=== PATIENT | female | born 1985 | race Hispanic/Latino ===

== ENCOUNTER 2016-10-09 13:16 | Emergency (ER) | payer OTHER ==
[~2016-10-09] VITALS: Ht 152.4 cm; Wt 81.6 kg
[~2016-10-09 13:16] MED LIST: ULTRAM50 M1 PO
--- NOTE | 2016-10-09 13:30 | ED GENERAL ADULT ---
History of Present Illness General Chief Complaint: Abdominal Pain/Flank Pain Stated Complaint: PT IS DIZZY,CAN'T KEEP ANYTHING DOWN, Source: patient Exam Limitations: no limitations Vital Signs & Intake/Output Vital Signs & Intake/Output ED Intake and Output 10/10 0000 10/09 1200 Intake Total 1000 Output Total Balance 1000 Intake, IV 1000 Patient 180 lb Weight Weight Estimated Measurement Method Allergies Coded Allergies: No Known Allergies (09/17/15) Reconcile Medications Penicillin V Potassium 500 MG TABLET 1 TAB PO BID STREP THROAT Triage Note: PT TO ED C/O ABD PAIN AND VOMITING SINCE YESTERDAY. DENIES DIARRHEA. Triage Nurses Notes Reviewed? yes Onset: Abrupt Duration: hour(s): Timing: recent history : No Patient currently breastfeeds: No HPI: 10/09/16 31-year-old female presents to the emergency department with lower abdominal pain, sore throat, and nausea. The patient states she was in her usual state of health until approximately 24 hours ago when she developed above symptoms. She denies fever. No recent travel. The onset of the symptoms was abrupt, the duration has been the last 12 hours, severity is significant; as her symptoms required her to come to the emergency department for care. She has no significant past medical history. Last menstrual period is presently. She denies any medications. she denies any drug allergies. There was no rash or tick bite. She denies any past surgical history Past History Travel History Traveled to [place] past 21 day No Medical History Any Pertinent Medical History? see below for history Surgical History Surgical History: non-contributory Psychosocial History What is your primary language Slovenian Tobacco Use: Never used ETOH Use: denies use Illicit Drug Use: denies illicit drug use Family History Hx Contributory? No Review of Systems Review of Systems Constitutional: Reports: fever, malaise. EENTM: Denies: visual changes. Respiratory: Reports: cough. Denies: short of breath. Cardiovascular: Denies: chest pain. GI: Reports: abdominal pain, vomiting. Genitourinary: Reports: no symptoms. Musculoskeletal: Reports: no symptoms. Skin: Denies: rash. Neurological/Psychological: Reports: no symptoms. Hematologic/Endocrine: Reports: no symptoms. Immunologic/Allergic: Reports: no symptoms. Physical Exam Physical Exam General Appearance: well developed/nourished, alert, awake, anxious, mild distress Head: atraumatic, normal appearance Eyes: Bilateral: normal appearance, PERRL, EOMI. Ears, Nose, Throat: normal ENT inspection, pharyngeal erythema with exudates Neck: normal inspection, supple Respiratory: normal breath sounds, chest non-tender, no respiratory distress Cardiovascular: regular rate/rhythm Peripheral Pulses: 4+ radial (R), 4+ radial (L) Gastrointestinal: soft, non-tender Back: normal range of motion Extremities: normal inspection, normal range of motion, no edema Neurologic/Psych: no motor/sensory deficits, awake, alert, oriented x 3 Skin: intact, normal color, warm/dry Core Measures ACS in differential dx? No CVA/TIA Diagnosis: No Severe Sepsis Present: No Septic Shock Present: No Progress Differential Diagnoses I considered the following diagnoses in my evaluation of the patient: [Strep pharyngitis, mono, cervicitis, PID, appendicitis, viral syndrome, gastroenteritis, pyelonephritis] Plan of Care: Orders Procedure Date/time Status THROAT CULTURE W/QUICK STREP 10/09 1357 Complete MONOSPOT 10/09 1357 Complete URINE 10/09 1356 Complete URINALYSIS 10/09 1356 Complete LIPASE 10/09 1356 Complete COMPREHENSIVE METABOLIC PANEL 10/09 1356 Complete CBC WITHOUT DIFFERENTIAL 10/09 1356 Complete AMYLASE 10/09 1356 Complete Laboratory Tests 10/09/16 1545: Urine Color YEL, Urine Clarity HAZY H, Urine pH 7.0, Ur Specific [place] <= 1.005, Urine Protein NEG, Urine Ketones NEG, Urine Nitrite NEG, Urine Bilirubin NEG, Urine Urobilinogen 0.2, Ur Leukocyte Esterase NEG, Ur Microscopic SEDIMENT EXAMINED, Urine RBC 1-3, Ur Epithelial Cells FEW, Urine Hemoglobin SMALL H, Urine Glucose NEG, Urine Test NEGATIVE 10/09/16 1400: Anion Gap 9, Estimated GFR > 60, BUN/Creatinine Ratio 15.7, Glucose 100 H, Calcium 8.5, Total Bilirubin 0.9, AST 22, ALT 32, Alkaline Phosphatase 78, Total Protein 6.8, Albumin 3.6, Globulin 3.2, Albumin/Globulin Ratio 1.1, Amylase 36, Lipase 50, CBC w Diff MAN DIFF ORDERED, RBC 3.76 L, MCV 89.7, MCH 31.0, RDW 12.7, MPV 7.9, Gran % 90.6 H, Lymphocytes % 4.8 L, Monocytes % 4.5, Eosinophils % 0, Basophils % 0.1, Absolute Granulocytes 8.9 H, Absolute Lymphocytes 0.5 L, Absolute Monocytes 0.4, Absolute Eosinophils 0, Absolute Basophils 0, Platelet Estimate ADEQUATE, Anisocytosis 1+, PUBS MCHC 34.6, Infectious [place] Titer NEGATIVE Initial ED EKG: none Departure Departure Disposition: HOME OR SELF CARE Condition: Stable Clinical Impression Primary Impression: Strep pharyngitis Secondary Impressions: Pelvic pain Referrals: UNKNOWN (PCP/Family) Departure Forms: Customer Survey General Discharge Information Prescriptions: Current Visit Scripts Penicillin V Potassium 1 TAB PO BID #20 TAB Comments The patient's labs are essentially unremarkable. Abdominal cramps are much improved. She's actually having her menstrual period now. test is negative. UA is unremarkable. She does not have significant leukocytosis. Quick strep was positive and she does have exudative pharyngitis. I'll treat with penicillin. She will follow-up with her doctor this week or return to the emergency department if worse 10/10/16 The patient was called for follow-up. She stated she was much improved. She was told that should she have any abdominal pain, to return to the emergency department. She denied any further vomiting, stated her pain was epigastric and free much gone, and will return for reevaluation should she have any pain. Critical Care Note Critical Care Note Critical Care Time: non-applicable
[2016-10-09 14:14] LABS: ABSOLUTE BASOPHIL COUNT 0 /CUMM (0.0-0.2); ABSOLUTE EOSINOPHIL COUNT 0 /CUMM (0.0-0.7); ABSOLUTE GRANULOCYTE CT 8.9 /CUMM (1.4-6.5); ABSOLUTE LYMPH COUNT 0.5 /CUMM (1.2-3.4); ABSOLUTE MONOCYTE COUNT 0.4 /CUMM (0.10-0.60); BASOPHIL % 0.1 % (0.0-2.0); EOSINOPHIL % 0 % (0-5); GRANULOCYTE % 90.6 % (42.2-75.2); HEMATOCRIT 33.8 % (37-47); MEAN CORPUSCULAR HGB CONC 34.6 G/DL (33.0-37.0); MEAN CORPUSCULAR VOLUME 89.7 FL (81.0-99.0); MEAN PLATELET VOLUME 7.9 FL (7.4-10.4); PLATELET COUNT 228 /CUMM (130-400); RBC DISTRIBUTION WIDTH 12.7 % (11.5-14.5); RED BLOOD CELL CT 3.76 /CUMM (4.20-5.40); WHITE BLOOD CELL COUNT 9.9 /CUMM (4.8-10.8)
[2016-10-09 16:17] VITALS: BP 111/68
[2016-10-09] MEDS ORDERED: PENICILLIN V P500 M1 PO (16:22)
== END 2016-10-09 16:37 ==
LOC: ERH 13:16
PROVIDERS: Emergency Medicine
DX: J02.0 Streptococcal pharyngitis (principal); R10.2 Pelvic and perineal pain
CPT/HCPCS: 81001; 81025; 96374; 96375; J0131; J2550

== ENCOUNTER 2016-10-11 15:53 | Emergency (ER) | payer OTHER ==
[~2016-10-11] VITALS: Ht 152.4 cm; Wt 82.8 kg
[~2016-10-11 15:53] MED LIST changes: +PENICILLIN V P500 M1 PO
[2016-10-11 16:34] LABS: ABSOLUTE BASOPHIL COUNT 0 /CUMM (0.0-0.2); ABSOLUTE EOSINOPHIL COUNT 0.1 /CUMM (0.0-0.7); ABSOLUTE GRANULOCYTE CT 4.3 /CUMM (1.4-6.5); ABSOLUTE LYMPH COUNT 1.5 /CUMM (1.2-3.4); ABSOLUTE MONOCYTE COUNT 0.6 /CUMM (0.10-0.60); BASOPHIL % 0.5 % (0.0-2.0); GRANULOCYTE % 65.7 % (42.2-75.2); HEMATOCRIT 36.1 % (37-47); MEAN CORPUSCULAR HGB 31.1 PG (27.0-31.0); MEAN CORPUSCULAR HGB CONC 34.5 G/DL (33.0-37.0); MEAN CORPUSCULAR VOLUME 90.1 FL (81.0-99.0); MEAN PLATELET VOLUME 8.1 FL (7.4-10.4); PLATELET COUNT 253 /CUMM (130-400); RBC DISTRIBUTION WIDTH 13.3 % (11.5-14.5); RED BLOOD CELL CT 4.01 /CUMM (4.20-5.40); WHITE BLOOD CELL COUNT 6.6 /CUMM (4.8-10.8)
--- NOTE | 2016-10-11 19:23 | ED GI/GU/ABDOMINAL COMPLAINT ---
History of Present Illness General Chief Complaint: Abdominal Pain/Flank Pain Stated Complaint: ABDOMINAL PAIN Source: patient Exam Limitations: no limitations Allergies Coded Allergies: No Known Allergies (09/17/15) Reconcile Medications Ondansetron (Zofran Odt) 4 MG TAB.RAPDIS 1 TAB SL TID PRN nausea Penicillin V Potassium 500 MG TABLET 1 TAB PO BID STREP THROAT Sulfamethoxazole/Trimethoprim (Bactrim Ds Tablet) 800 MG-160 MG TABLET 1 TAB PO BID uti Tramadol HCl 50 MG TABLET 1 TAB PO TIDPRN PAIN (Reported) Triage Note: STATES THAT SHE WAS SEEN HERE 3 DAYS AGO AND DIAGNOSED STREP THROAT, ALSO STATES THAT SHE HAS BEEN HAVING MIS ABD CRAMPING AND N/V, ALSO COMPLAINS OF VAGINAL DISCHARGE WITH ODOR Triage Nurses Notes Reviewed? yes ? N Is pt currently ? No HPI: This patient is a 31 year old female who presented to the emergency department today for 2 days of abdominal pain, nausea, and vomiting. She reported that she was seen here 3 days ago and diagnosed with strep throat. She has been taking antibiotics as prescribed. The patient reported that she just finished her mentrual cycle. She reported that she has been having intermittent, sharp, mid- lower abdominal pain with associated nausea and vomiting associated with eating. She reported some mild vaginal discharge with a slight odor. No urinary burning, urgency, frequency, or blood in the urine. No fevers, chills, chest pain, back pain, or difficulty breathing. (ANTONIO LYNN,MORGAN) Vital Signs & Intake/Output Vital Signs & Intake/Output Vital Signs Date Time Temp Pulse Resp B/P B/P Pulse O2 O2 Flow FiO2 Mean Ox Delivery Rate 10/11 194 97.8 59 18 131/70 97 10/11 1559 97.9 78 18 128/86 99 Room Air ED Intake and Output 10/12 0000 10/11 1200 Intake Total 1000 Output Total Balance 1000 Intake, IV 1000 Patient 183 lb Weight Past History Travel History Traveled to [place] past 21 day No Medical History Any Pertinent Medical History? 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 No (ANTONIO LYNN,MORGAN) Review of Systems Review of Systems Constitutional: Reports: no symptoms. EENTM: Reports: see HPI. Respiratory: Reports: no symptoms. Cardiovascular: Reports: no symptoms. GI: Reports: see HPI. Genitourinary: Reports: see HPI. Musculoskeletal: Reports: no symptoms. Skin: Reports: no symptoms. Neurological/Psychological: Reports: no symptoms. All Other Systems: Reviewed and Negative (ANTONIO LYNN,MORGAN) Physical Exam Physical Exam Gastrointestinal: normal bowel sounds, soft, non-tender, no organomegaly, no rebound or guarding. no masses or hernias appreciated Comments: General: Well-developed, well-nourished person in no acute distress HEENT: Head normocephalic, moist mucous membranes Neck: Supple, no lymphadenopathy Back: NO CVA tenderness. NOrmal gait Respiratory: NO respiratory distress, speaking in full sentences Neuro: A&Ox3 Psych: Normal mood and affect Core Measures ACS in differential dx? No Severe Sepsis Present: No Septic Shock Present: No (ANTONIO LYNN,MORGAN) Progress Differential Diagnosis: AAA, AMI, appendicitis, biliary colic, bowel obstruction , colon cancer, cholecystitis, diverticulitis, ectopic , endometritis, gastritis, hepatitis, hernia, ischemic bowel, inflamm bowel dis, intrauterine , kidney stone, ovarian cyst, ovarian torsion, pancreatitis, PID/ cervicitis, PUD/GERD, perforated viscous, threatened AB, UTI/pyelo Diagnostic Imaging: Viewed by Me: CT Scan. Discussed w/RAD: CT Scan. Radiology Impression: PATIENT: MAMADOU NELSON PRESENT AGE: 31 PATIENT ACCOUNT NO: [id number] : 87 LOCATION: [facility] ORDERING PHYSICIAN: MORGAN ALVAREZ PA-C SERVICE DATE: 10/11/16 EXAM TYPE: CAT - CT ABD & PELVIS W IV CONTRAST EXAMINATION: CT ABDOMEN AND PELVIS WITH CONTRAST CLINICAL INFORMATION: Lower abdominal pain. Evaluate for acute appendicitis. COMPARISON: None. TECHNIQUE: Multidetector volumetric imaging was performed of the abdomen and pelvis before and after the IV administration of 95 mL of Optiray 320 intravenous contrast. Sagittal and coronal reformatted images were obtained on the technologist's workstation. DLP: 455 mGy-cm FINDINGS: LUNG BASES : The visualized lung bases are unremarkable. LIVER, GALLBLADDER, AND BILIARY TREE: The liver is normal in size, shape, and attenuation. No focal hepatic lesion or biliary ductal dilatation is present. The gallbladder is unremarkable with no evidence of radiopaque gallstones, gallbladder wall thickening, or obvious pericholecystic inflammatory changes. PANCREAS: Unremarkable. SPLEEN: Unremarkable. ADRENAL GLANDS: Unremarkable. KIDNEYS AND URETERS: The kidneys are normal in size, shape, and attenuation. No hydronephrosis, hydroureter, or calculi seen. No perinephric stranding. BLADDER: Unremarkable. GASTROINTESTINAL TRACT: Normal anatomic orientation of the stomach relative to the duodenum. Normal caliber of abdominal and pelvic bowel loops, without evidence of obstruction or ileus. No circumferential bowel wall thickening with surrounding inflammatory changes to suggest an underlying infectious or inflammatory enterocolitis. Normal-appearing appendix within the right lower quadrant of the abdomen. No organizing intra-abdominal fluid collections or free intraperitoneal air. ABDOMINAL WALL: No significant hernia is appreciated. LYMPH NODES: No significant abdominal or pelvic adenopathy. VASCULAR: Patent abdominal vasculature. Normal course and caliber of the abdominal aorta and its branching vessels, without aneurysmal dilatation. PELVIC VISCERA: Unremarkable. OSSEOUS STRUCTURES: No acute osseous abnormality. Normal alignment of the imaged thoracolumbar spine. No visible destructive osseous lesions. IMPRESSION: No acute findings within the abdomen or pelvis to explain patient symptomatology. A normal-appearing appendix is identified within the right lower quadrant of the abdomen. DICTATED BY: MARTIN CABA MD DATE/TIME DICTATED:10/11/161941 WOOL GROWER:JOSE DATE/TIME TRANSCRIBED:10/11/161941 CONFIDENTIAL, DO NOT COPY WITHOUT APPROPRIATE AUTHORIZATION. <Electronically signed in Other Vendor System> SIGNED BY: MARTIN CABA MD 10/11/161954 Initial ED EKG: none (MORGAN ALVAREZ PA-C) Plan of Care: Orders Procedure Date/time Status LACTIC ACID 10/11 190 Complete Add-on Test (ER Only) 10/11 1835 Active Add-on Test (ER Only) 10/11 1822 Active CULTURE,URINE 10/11 161 Active URINE 10/11 1612 Complete LIPASE 10/11 1607 Complete HUMAN BETA HCG SCREEN 10/11 160 Complete DIRECT BILIRUBIN 10/11 1607 Complete AMYLASE 10/11 1607 Complete URINALYSIS 10/11 160 Complete COMPREHENSIVE METABOLIC PANEL 10/11 160 Complete CBC WITHOUT DIFFERENTIAL 10/11 1601 Complete Laboratory Tests 10/11/16 1905: Lactic Acid 0.6 L 10/11/16 161: Urinalysis LIGHT H, Urine Color YEL, Urine Clarity HAZY H, Urine pH 6.0, Ur Specific [place] 1.025, Urine Protein TRACE H, Urine Ketones NEG, Urine Nitrite NEG, Urine Bilirubin NEG@ICTO, Urine Urobilinogen 2.0 H, Ur Leukocyte Esterase TRACE H, Ur Microscopic SEDIMENT EXAMINED, Urine RBC 5-10 H, Urine WBC 1-3 H, Ur Epithelial Cells MOD H, Urine Bacteria FEW H, Urine Mucus MOD H, Urine Hemoglobin MOD H, Urine Glucose NEG, Urine Test NEGATIVE 10/11/16 160: Anion Gap 12, Estimated GFR > 60, BUN/Creatinine Ratio 25.7 H, Glucose 89, Calcium 8.8, Total Bilirubin 0.7, Direct Bilirubin 0.4, AST 82 H, ALT 91 H, Alkaline Phosphatase 107, Total Protein 7.0, Albumin 3.9, Globulin 3.1, Albumin/ Globulin Ratio 1.3, Amylase 45, Lipase 173, Total Beta HCG NEGATIVE 10/11/16 160: CBC w Diff NO MAN DIFF REQ, RBC 4.01 L, MCV 90.1, MCH 31.1 H, RDW 13.3, MPV 8.1, Gran % 65.7, Lymphocytes % 22.9, Monocytes % 8.9, Eosinophils % 2.0, Basophils % 0.5, Absolute Granulocytes 4.3, Absolute Lymphocytes 1.5, Absolute Monocytes 0.6, Absolute Eosinophils 0.1, Absolute Basophils 0, PUBS MCHC 34.5 Microbiology 10/12 1611 URINE ROUT: Urine Culture - RECD Departure Departure Disposition: HOME OR SELF CARE Condition: Stable Clinical Impression Primary Impression: Abdominal pain Qualifiers: Abdominal location: unspecified location Qualified Code: R10.9 - Unspecified abdominal pain Referrals: UNKNOWN (PCP/Family) Additional Instructions: take medication for nausea as prescribed. take antiobiotic as prescribed for uti. return for any worsening symptoms or concerns. Departure Forms: Customer Survey General Discharge Information Prescriptions: Current Visit Scripts Ondansetron (Zofran Odt) 1 TAB SL TID PRN nausea #10 TAB Sulfamethoxazole/Trimethoprim (Bactrim Ds Tablet) 1 TAB PO BID #14 TAB (ANTONIO LYNN,MORGAN) PA/SECURITY PATROL DRIVER Co-Sign Statement Statement: ED Attending supervision documentation- I saw and evaluated the patient. I have also reviewed all the pertinent lab results and diagnostic results. I agree with the findings and the plan of care as documented in the PA's/SECURITY PATROL DRIVER's documentation. x I have reviewed the ED Record and agree with the PA's/SECURITY PATROL DRIVER's documentation. [] Additions or exceptions (if any) to the PAs/SECURITY PATROL DRIVER's note and plan are summarized below: [] (SORAIDA ODELL,AYAAN)
[2016-10-11 19:42] VITALS: BP 131/70
--- NOTE | 2016-10-11 19:55 | CT SCAN REPORT ---
EXAMINATION: CT ABDOMEN AND PELVIS WITH CONTRAST CLINICAL INFORMATION: Lower abdominal pain. Evaluate for acute appendicitis. COMPARISON: None. TECHNIQUE: Multidetector volumetric imaging was performed of the abdomen and pelvis before and after the IV administration of 95 mL of Optiray 320 intravenous contrast. Sagittal and coronal reformatted images were obtained on the technologist's workstation. DLP: 455 mGy-cm FINDINGS: LUNG BASES: The visualized lung bases are unremarkable. LIVER, GALLBLADDER, AND BILIARY TREE: The liver is normal in size, shape, and attenuation. No focal hepatic lesion or biliary ductal dilatation is present. The gallbladder is unremarkable with no evidence of radiopaque gallstones, gallbladder wall thickening, or obvious pericholecystic inflammatory changes. PANCREAS: Unremarkable. SPLEEN: Unremarkable. ADRENAL GLANDS: Unremarkable. KIDNEYS AND URETERS: The kidneys are normal in size, shape, and attenuation. No hydronephrosis, hydroureter, or calculi seen. No perinephric stranding. BLADDER: Unremarkable. GASTROINTESTINAL TRACT: Normal anatomic orientation of the stomach relative to the duodenum. Normal caliber of abdominal and pelvic bowel loops, without evidence of obstruction or ileus. No circumferential bowel wall thickening with surrounding inflammatory changes to suggest an underlying infectious or inflammatory enterocolitis. Normal-appearing appendix within the right lower quadrant of the abdomen. No organizing intra-abdominal fluid collections or free intraperitoneal air. ABDOMINAL WALL: No significant hernia is appreciated. LYMPH NODES: No significant abdominal or pelvic adenopathy. VASCULAR: Patent abdominal vasculature. Normal course and caliber of the abdominal aorta and its branching vessels, without aneurysmal dilatation. PELVIC VISCERA: Unremarkable. OSSEOUS STRUCTURES: No acute osseous abnormality. Normal alignment of the imaged thoracolumbar spine. No visible destructive osseous lesions. IMPRESSION: No acute findings within the abdomen or pelvis to explain patient symptomatology. A normal-appearing appendix is identified within the right lower quadrant of the abdomen.
[2016-10-11] MEDS ORDERED: ZOFRAN ODT4 M1 SL (20:09)
[2016-10-11] MEDS ORDERED: BACTRIM DS TAB1 EACH PO (20:09)
[2016-10-11] MEDS ORDERED: TRAMADOL HCL50 M1 PO (20:18)
== END 2016-10-11 20:19 ==
LOC: ERH 15:53
PROVIDERS: Emergency Medicine
DX: R10.9 Unspecified abdominal pain (principal)
CPT/HCPCS: 74177; 81001; 81025; 87086; 96361; 96374; J2405

== ENCOUNTER 2017-08-12 11:27 | Emergency (ER) | payer OTHER ==
[~2017-08-12] VITALS: Ht 152.4 cm; Wt 77.1 kg
[~2017-08-12 11:27] MED LIST changes: +BACTRIM DS TAB1 EACH PO; +CYCLOBENZAPRINE5 M2 PO; +MEDROL4 M2 PO; +TRAMADOL HCL50 M1 PO; +ZOFRAN ODT4 M1 SL
[2017-08-12 11:45] VITALS: BP 121/82
== END 2017-08-12 15:22 | disposition admitted as inpatient to this hospital (09) ==
LOC: ERH 11:27
DX: L02.412 Cutaneous abscess of left axilla (principal)

== ENCOUNTER 2018-01-08 21:51 | Emergency (ER) | payer OTHER ==
[~2018-01-08] VITALS: Ht 152.4 cm; Wt 81.6 kg
[~2018-01-08 21:51] MED LIST changes: +IBUPROFEN800 M1 PO
[2018-01-09] MEDS ORDERED: AMOXICILLIN500 M3 PO (01:18)
[2018-01-09] MEDS ORDERED: IBUPROFEN600 M1 PO (01:18)
[2018-01-09] MEDS ORDERED: BENADRYL ALLERG25 M2 PO (01:18)
--- NOTE | 2018-01-09 01:19 | ED INFLUENZA/URI COMPLAINT ---
History of Present Illness General Chief Complaint: General Adult Stated Complaint: "SINUS BAIRES,SOB" Source: patient, old records Exam Limitations: no limitations Vital Signs & Intake/Output Vital Signs & Intake/Output Vital Signs Date Time Temp Pulse Resp B/P B/P Pulse O2 O2 Flow FiO2 Mean Ox Delivery Rate 01/09 0152 98.0 80 20 118/75 99 Room Air 01/08 2156 97.6 72 20 111/76 97 Room Air ED Intake and Output 01/09 0000 01/08 1200 Intake Total Output Total Balance Patient 180 lb Weight Weight Standing Scale Measurement Method Allergies Coded Allergies: No Known Allergies (08/13/17) Reconcile Medications Amoxicillin 500 MG TABLET 1 TAB PO TID sinusitis Diphenhydramine HCl (Benadryl Allergy) 25 MG TABLET 1-2 TAB PO Q6P PRN congestion Ibuprofen 800 MG TABLET 1 TAB PO TID PAIN Ibuprofen 600 MG TABLET 1 TAB PO Q6P PRN pain with food Triage Note: PT TO TRIAGE C/O SINUS CONGESTION X2 DAYS, NASAL CONGESTION MAKING IT DIFFICULT TO BREATH, RA SAT 97%. AFEBRILE. DENIES THROAT PAIN. TOOK ADVIL AND OTC ALLERGY MED WITHOUT EFFECT. Triage Nurses Notes Reviewed? yes Onset: 2 days Duration: day(s):, constant, continues in ED, getting worse Timing: recent history Severity: moderate Prior Episodes/Possible Cause: illness exposure No Modifying Factors: none Associated Symptoms: cough, dizziness, facial pain, fever/chills, muscle aches, nasal congestion, nasal drainage, sinus infection LMP (ages 10-50): unknown : No Patient currently breastfeeds: No HPI: 2 days prior to admission patient complains of sinus tenderness nasal congestion chills nonproductive cough dizziness. She denies fever nausea vomiting diarrhea abdominal pain chest pain shortness of breath dysuria rash bleeding. Past History Travel History Traveled to [place] past 21 day No Medical History Any Pertinent Medical History? 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 No Review of Systems Review of Systems Constitutional: Reports: see HPI, chills, malaise. EENTM: Reports: see HPI, nasal congestion. Respiratory: Reports: see HPI, cough. Denies: sputum production. Cardiovascular: Reports: no symptoms. GI: Reports: no symptoms. Genitourinary: Reports: no symptoms. Musculoskeletal: Reports: no symptoms. Skin: Reports: no symptoms. Neurological/Psychological: Reports: no symptoms. Hematologic/Endocrine: Reports: no symptoms. Immunologic/Allergic: Reports: no symptoms. All Other Systems: Reviewed and Negative Physical Exam Physical Exam General Appearance: well developed/nourished, alert, awake, anxious, moderate distress, obese Head: atraumatic, normal appearance, tenderness (frontal maxillary) Eyes: Bilateral: normal appearance, PERRL, EOMI. Ears, Nose, Throat: normal ENT inspection, moist mucous membrane, hearing grossly normal Neck: normal inspection, supple, full range of motion, trachea midline, lymphadenopathy (R), lymphadenopathy (L), no midline tenderness Respiratory: normal breath sounds, chest non-tender, no respiratory distress, quiet respiration, lungs clear Cardiovascular: regular rate/rhythm, normal peripheral pulses, norml femoral pulses equa Peripheral Pulses: 4+ carotid (R), 4+ carotid (L) Gastrointestinal: normal bowel sounds, soft, non-tender, no organomegaly Back: normal inspection, normal range of motion Extremities: normal inspection, normal capillary refill, normal range of motion, no edema Neurologic/Psych: no motor/sensory deficits, awake, alert, oriented x 3, normal gait, normal mood/affect, assistant signal maintainer II-XII nml as tested Reflexes: 2+: bicep (R), bicep (L). Skin: intact, normal color, warm/dry Lymphatic: adenopathy Core Measures Sepsis Present: No Sepsis Focused Exam Completed? No Progress Differential Diagnosis: influenza, pneumonia, pharyngitis, sinusitis Plan of Care: Current Medications Sig/Elisha Start time Last Medication Dose Stop Time Status Admin Diphenhydramine HCl 25 MG ONCE ONE 01/09 130 UNVr (Benadryl) 01/09 131 Amoxicillin 500 MG ONCE ONE 01/09 115 UNVr (Amoxil) 01/10 116 Oxymetazoline HCl 2 SPRAY ONCE ONE 01/09 115 UNVr (Afrin) 01/10 116 Initial ED EKG: none Departure Departure Time of Disposition: 116 Disposition: HOME OR SELF CARE Condition: Stable Clinical Impression Primary Impression: Sinusitis Referrals: Kylah CABELLO,Fanny Asher (PCP/Family) Departure Forms: Customer Survey General Discharge Information RELEASE- WORK Prescriptions: Current Visit Scripts Amoxicillin 1 TAB PO TID #30 TAB Ibuprofen 1 TAB PO Q6P PRN pain #50 TAB with food Diphenhydramine HCl (Benadryl Allergy) 1-2 TAB PO Q6P PRN congestion #30 TAB Ref 1
[2018-01-09 01:52] VITALS: BP 118/75
== END 2018-01-09 01:51 ==
LOC: ERH 21:51
DX: J32.9 Chronic sinusitis, unspecified (principal)